=== PATIENT | male | born 1955 | race Caucasian/White ===

== ENCOUNTER 2016-12-17 12:21 | Emergency (ER) | payer BC ==
--- NOTE | 2016-12-17 12:51 | UC ---
Complaint Male HPI - HPI Summary HPI Summary: Had walters cath removed on ---Has not had a void since---He has had some minimal dribbling - History of Current Complaint Chief Complaint: UCGU Stated Complaint: RECATH Time Seen by Provider: 12/17/16 12:25 Hx Obtained From: Patient, Family/Stationary Engineer Onset/Duration: Gradual Onset, Lasting Days - 2, Still Present Timing: Constant Severity Initially: Moderate Severity Currently: Moderate Pain Intensity: 6 Pain Scale Used: 0-10 Numeric Location: Suprapubic Character: Constant Pressure Aggravating Factor(s): Nothing Alleviating Factor(s): Nothing - Allergies/Home Medications Allergies/Adverse Reactions: Allergies Allergy/AdvReac Type Severity Reaction Status Date / Time cats Allergy Severe Difficulty Uncoded 12/17/16 12:49 Breathing Home Medications: Home Medications ALPRAZolam TAB* [Xanax TAB*] 12/17/16 [History] Acetaminophen TAB* [Tylenol TAB*] 12/17/16 [History] Docusate CAP* [Colace Cap*] 12/17/16 [History] Ibuprofen TAB* [Motrin TAB* 800 MG] 12/17/16 [History] Lidocaine 5% Patch 12/17/16 [History] LoraTADine TAB(NF) [Claritin 10 MG TAB(NF)] 12/17/16 [History] Morphine Sulfate [Morphine Sulfate Cr] 12/17/16 [History] Polyethylene Glycol 3350* [Miralax*] 12/17/16 [History] Tamsulosin CAP* [Flomax CAP*] 12/17/16 [History] oxyCODONE SR TAB(*) [Oxycontin 10 mg (*)] 12/17/16 [History] traMADol TAB* [Ultram*] 12/17/16 [History] PMH/Surg Hx/FS Hx/Imm Hx Previously Healthy: No - trauma one month ago - Surgical History Surgical History: Yes Surgery Procedure, Year, and Place: appe. open reduction and fixation of right humerous - Family History Known Family History: Positive: None - Social History Occupation: Unemployed Lives: With Family Alcohol Use: Occasionally Substance Use Type: None Smoking Status (MU): Never Smoked Tobacco Review of Systems Constitutional: Negative Skin: Negative Eyes: Negative ENT: Negative Respiratory: Negative Cardiovascular: Negative Gastrointestinal: Negative Genitourinary: Other - urinary retention after walters cath removal 2 days ago Motor: Negative Neurovascular: Negative Musculoskeletal: Negative Neurological: Negative Psychological: Negative All Other Systems Reviewed And Are Negative: Yes Physical Exam Triage Information Reviewed: Yes Appearance: Well-Appearing, Well-Nourished, Pain Distress Vital Signs: Initial Vital Signs Temp 97.7 F 12/17/16 12:24 Pulse 97 12/17/16 12:24 Resp 20 12/17/16 12:24 Pulse Ox 100 12/17/16 12:24 Vital Signs Reviewed: Yes Eye Exam: Normal Eyes: Positive: Conjunctiva Clear ENT Exam: Normal ENT: Positive: Normal ENT inspection, Hearing grossly normal. Negative: Nasal congestion, Nasal drainage, Trismus, Muffled/hoarse voice Neck exam: Normal Neck: Positive: Supple, Nontender Respiratory Exam: Normal Respiratory: Positive: Lungs clear, Normal breath sounds, No respiratory distress, No accessory muscle use Cardiovascular Exam: Normal Cardiovascular: Positive: RRR, No Murmur, Pulses Normal, Brisk Capillary Refill Abdominal Exam: Normal Abdomen Description: Positive: No Organomegaly, Soft, Distended - BLadder--- Supra pubic discomfort Bowel Sounds: Positive: Present Musculoskeletal Exam: Normal Musculoskeletal: Positive: Strength Intact, ROM Intact, No Edema Neurological Exam: Normal Neurological: Positive: Alert, Muscle Tone Normal Psychological Exam: Normal Psychological: Positive: Normal Response To Family Skin Exam: Normal Re-Evaluation - Re-Evaluation First Eval Change: Improved - #16 F/c placed with difficulty passing through Prostate, immediate return of 1200cc of ivna urine, small amount of oozing blood at the meatus Complaint Male Course/Dx - Course Course Of Treatment: Indwelling walters cath, [facility] as planned, to ed for increase pain fever decreased urine output - Differential Dx/Diagnosis Differential Diagnosis/HQI/PQRI: Trauma, Urinary Tract Infection, Other - urinary retention Provider Diagnoses: Urinary retention Discharge - Discharge Plan Condition: Stable Disposition: HOME Patient Education Materials: Urinary Retention in Men (ED), Walters Catheter Placement and Care (ED) Additional Instructions: Follow on Monday with trauma services in [facility] as planned
[2016-12-17 12:56] VITALS: BP 117/72
== END 2016-12-17 13:56 | disposition home or self-care (01) ==
LOC: UCEAST 12:21
DX: R33.9 Retention of urine, unspecified (principal)
CPT/HCPCS: 51702; 81003; 87077; 87086; 87186; 99202; G0463